=== PATIENT | male | born 1995 | race African-American/Black ===

== ENCOUNTER 2017-12-27 14:51 | Emergency (ER) | payer OTHER ==
[~2017-12-27] VITALS: Ht 172.7 cm; Wt 91.4 kg
[2017-12-27] MEDS ORDERED: IBUPROFEN 600 MG TABLET PO ONE (15:45)
[2017-12-27] MEDS ORDERED: SULFAMETHOX/TRIMETH DS 800-160 MG/TABLET PO ONE (15:45)
[2017-12-27 17:20] VITALS: BP 121/71
== END 2017-12-27 17:20 | disposition home or self-care (01) ==
LOC: EMS 14:54
DX: S51.832A Puncture wound without foreign body of left forearm, initial encounter (principal); W50.3XXA Accidental bite by another person, initial encounter; Y93.89 Activity, other specified; Y92.89 Other specified places as the place of occurrence of the external cause; Y99.8 Other external cause status
CPT/HCPCS: 99283

== ENCOUNTER 2018-12-24 01:57 | Emergency (ER) | payer OTHER ==
[~2018-12-24] VITALS: Ht 180.3 cm; Wt 86.4 kg
[2018-12-24 02:16] LABS: APPEARANCE,URINE CLEAR (CLEAR); BILIRUBIN,URINE NEGATIVE (NEGATIVE); GLUCOSE, URINE (UA) NEGATIVE (NEGATIVE); KETONES,URINE NEGATIVE (NEGATIVE); LEUKOCYTE ESTERASE ,URINE NEGATIVE (NEGATIVE); NITRATE,URINE NEGATIVE (NEGATIVE); OCCULT BLOOD,URINE NEGATIVE (NEGATIVE); PH,URINE 6.5 (5.0-8.0); PROTEIN,URINE NEGATIVE (NEGATIVE); UROBILINOGEN,URINE 0.2 mg/dL (<=1.0)
[2018-12-24 03:05] VITALS: BP 144/76
[2018-12-24] MEDS ORDERED: AZITHROMYCIN 250 MG TABLET PO ONE (03:45)
[2018-12-24] MEDS ORDERED: CefTRIAXone SODIUM 1 GM/VIAL IM ONE (03:45)
== END 2018-12-24 04:06 | disposition home or self-care (01) ==
LOC: EMS 01:58
DX: N34.2 Other urethritis (principal)
CPT/HCPCS: 81003; 96372; 99283; J0696

== ENCOUNTER 2020-12-16 18:20 | Emergency (ER) | payer OTHER ==
[~2020-12-16] VITALS: Ht 177.8 cm; Wt 100.0 kg
[2020-12-16 18:28] VITALS: BP 137/67
[2020-12-16] MEDS ORDERED: AZITHROMYCIN 500 MG TABLET PO ONE (19:45)
[2020-12-16] MEDS ORDERED: CefTRIAXone SODIUM 1 GM/VIAL IM ONE (19:45)
[2020-12-16] MEDS ORDERED: LIDOCAINE/PF 1% 2 ML VIAL IM ONE (19:45)
== END 2020-12-16 20:12 | disposition home or self-care (01) ==
LOC: EMS 18:20
DX: N34.2 Other urethritis (principal)
CPT/HCPCS: 96372; 99283; A9575; J0696; J3490

== ENCOUNTER 2021-01-24 13:49 | Emergency (ER) | payer OTHER ==
[~2021-01-24] VITALS: Ht 177.8 cm; Wt 100.0 kg
[2021-01-24 13:51] VITALS: BP 128/77
[2021-01-24] MEDS: LIDOCAINE/PF 1% 2 ML VIAL IM ONE (16:02)
[2021-01-24] MEDS: CefTRIAXone SODIUM 1 GM/VIAL IM ONE (16:02)
[2021-01-24] MEDS: AZITHROMYCIN 500 MG TABLET PO ONE (16:02)
== END 2021-01-24 16:10 | disposition home or self-care (01) ==
LOC: EMS 13:58
DX: A64 Unspecified sexually transmitted disease (principal)
CPT/HCPCS: 96372; 99283; A9575; J0696; J3490

== ENCOUNTER 2021-03-16 15:56 | Emergency (ER) | payer OTHER ==
[~2021-03-16] VITALS: Ht 177.8 cm; Wt 102.3 kg
[2021-03-16 17:38] VITALS: BP 141/76
[2021-03-16] MEDS ORDERED: AZITHROMYCIN 500 MG TABLET PO ONE (18:15)
[2021-03-16] MEDS ORDERED: CefTRIAXone SODIUM 1 GM/VIAL IM ONE (18:15)
[2021-03-16] MEDS ORDERED: LIDOCAINE/PF 1% 2 ML VIAL IM ONE (18:15)
== END 2021-03-16 19:10 | disposition home or self-care (01) ==
LOC: EMS 15:58
DX: N34.2 Other urethritis (principal)
CPT/HCPCS: 96372; 99283; J0696; J3490; Q9967

== ENCOUNTER 2021-12-07 15:00 | Emergency (ER) | payer OTHER ==
[~2021-12-07] VITALS: Ht 180.3 cm; Wt 113.6 kg
[2021-12-07 15:04] VITALS: BP 158/80
[2021-12-07] MEDS ORDERED: LIDOCAINE/PF 1% 2 ML VIAL IM ONE (17:15)
[2021-12-07] MEDS ORDERED: AZITHROMYCIN 500 MG TABLET PO ONE (17:15)
[2021-12-07] MEDS ORDERED: CefTRIAXone SODIUM 1 GM/VIAL IM ONE (17:15)
== END 2021-12-07 17:57 | disposition home or self-care (01) ==
LOC: EMS 15:02
DX: Z20.2 Contact with and (suspected) exposure to infections with a predominantly sexual mode of transmission (principal); Z86.79 Personal history of other diseases of the circulatory system
CPT/HCPCS: 96372; 99283; J0696; J3490; Q9967

== ENCOUNTER 2022-03-03 10:54 | Emergency (ER) | payer OTHER ==
[~2022-03-03] VITALS: Ht 180.3 cm; Wt 113.6 kg
[2022-03-03] MEDS ORDERED: LIDOCAINE/PF 1% 2 ML VIAL IM ONE (13:45)
[2022-03-03] MEDS ORDERED: CefTRIAXone SODIUM 1 GM/VIAL IM ONE (13:45)
[2022-03-03] MEDS ORDERED: DOXY-354 PO (14:34)
[2022-03-03 14:50] LABS: APPEARANCE,URINE HAZY (CLEAR); BILIRUBIN,URINE NEGATIVE (NEGATIVE); GLUCOSE, URINE (UA) NEGATIVE (NEGATIVE); KETONES,URINE NEGATIVE (NEGATIVE); LEUKOCYTE ESTERASE ,URINE LARGE (NEGATIVE); NITRATE,URINE NEGATIVE (NEGATIVE); OCCULT BLOOD,URINE SMALL (NEGATIVE); PROTEIN,URINE 30-70 mg/dL (NEGATIVE); UROBILINOGEN,URINE <=1.0 mg/dL (<=1.0)
[2022-03-03 15:24] LABS: WBC,URINE Full Field /HPF (0-5)
[2022-03-03 15:25] LABS: BACTERIA,URINE Few /HPF (None Seen)
[2022-03-03 15:44] VITALS: BP 128/80
== END 2022-03-03 15:44 | disposition home or self-care (01) ==
LOC: EMS 10:54
DX: N34.2 Other urethritis (principal); Q24.9 Congenital malformation of heart, unspecified; Z98.890 Other specified postprocedural states
CPT/HCPCS: 99284; 81001; 87086; 87491; 87591; 96372; J0696; J3490

== ENCOUNTER 2022-03-24 09:13 | Emergency (ER) | payer OTHER ==
[~2022-03-24] VITALS: Ht 180.3 cm; Wt 113.6 kg
[~2022-03-24 09:13] MED LIST: DOXY-354 PO
[2022-03-24 10:54] VITALS: BP 136/76
[2022-03-24 11:29] LABS: APPEARANCE,URINE CLEAR (CLEAR); BILIRUBIN,URINE NEGATIVE (NEGATIVE); GLUCOSE, URINE (UA) NEGATIVE (NEGATIVE); KETONES,URINE NEGATIVE (NEGATIVE); LEUKOCYTE ESTERASE ,URINE TRACE (NEGATIVE); NITRATE,URINE NEGATIVE (NEGATIVE); OCCULT BLOOD,URINE NEGATIVE (NEGATIVE); PROTEIN,URINE NEGATIVE (NEGATIVE); SPECIFIC GRAVITIY, URINE 1.026 (1.003-1.030); UROBILINOGEN,URINE <=1.0 mg/dL (<=1.0)
[2022-03-24 11:41] LABS: BACTERIA,URINE None Seen /HPF (None Seen); RBC,URINE None Seen /HPF (0-2); WBC,URINE 0-2 /HPF (0-5)
== END 2022-03-24 12:05 | disposition home or self-care (01) ==
LOC: EMS 09:13
DX: Z20.2 Contact with and (suspected) exposure to infections with a predominantly sexual mode of transmission (principal); Z98.890 Other specified postprocedural states
CPT/HCPCS: 81001; 87491; 87591; 99283

== ENCOUNTER 2022-10-14 08:10 | Emergency (ER) | payer MEDICAID, OTHER ==
[~2022-10-14] VITALS: Ht 180.3 cm; Wt 109.1 kg
[2022-10-14 09:58] VITALS: BP 132/77
== END 2022-10-14 11:23 | disposition home or self-care (01) ==
LOC: EMS 08:23
DX: R60.1 Generalized edema (principal); Z98.890 Other specified postprocedural states
CPT/HCPCS: 99283